=== PATIENT | male | born 1970 | race African-American/Black ===

== ENCOUNTER 2018-11-27 11:09 | Emergency (ER) | payer MEDICAID ==
[~2018-11-27] VITALS: Ht 182.9 cm; Wt 77.1 kg
[2018-11-27 11:09] VITALS: BP 148/76
--- NOTE | 2018-11-27 11:10 | NUR ---
ED Nurse Note: Patient biba c/o of upper back pain, patient states that a garage door fell on his back. rates his pain a 8/10 pain, states that the pain is slowly creeping up from the middle of his back to his upper back, denies any headaches or blurred vision. patient is alert and oriented x4, no lacerations in head
[2018-11-27] MEDS ORDERED: Acetaminophen 500mg (ES) tab ORAL ONE (13:00)
--- NOTE | 2018-11-27 14:15 | Emergency Room Report ---
History of Present Illness General Chief Complaint: Pain Present Illness HPI 48-year-old male presents to the emergency department complaining of localized 8 out of 10 in severity pain to the lower back primarily on the right side with some radiation up towards the upper back and his neck. Status post the garage door falling on top of his back. Patient reports that when it rains that brought her slipped often and this was the case today. Patient denies midline neck pain he denies hitting his head or having loss of consciousness.Denies numbness tingling or loss of sensation or gross motor movements of the extremities, incontinence of bowel or bladder. Denies CP, Palpitations, LOC, AMS , dizziness, Changes in Vision, weakness or a sudden severe headache. Bending forward exacerbates his pain. Allergies: Coded Allergies: No Known Allergies (Unverified , 11/27/18) Patient History Past Medical History: see triage record Past Surgical History: none Pertinent Family History: none Reviewed Nursing Documentation: PMH: Agreed; PSxH: Agreed Review of Systems All Other Systems: negative except mentioned in HPI Physical Exam Vital Signs Date Time Temp Pulse Resp B/P (MAP) Pulse Ox O2 Delivery O2 Flow Rate FiO2 11/27/18 11:04 98.4 80 18 148/76 98 Room Air Sp02 EP Interpretation: reviewed, normal General Appearance: no apparent distress, alert, GCS 15, non-toxic Head: normocephalic, atraumatic Eyes: bilateral eye normal inspection, bilateral eye PERRL ENT: hearing grossly normal, normal voice Neck: full range of motion Respiratory: lungs clear, normal breath sounds, speaking full sentences Cardiovascular #1: regular rate, rhythm Rectal: deferred Genitourinary: normal inspection Musculoskeletal: back normal, gait/station normal, normal range of motion, tender - TTp across the lumbar area, paraspinal musculature and mild midline ttp. FROm. Neurologic: alert, oriented x3, responsive, motor strength/tone normal, sensory intact, normal gait, speech normal, grossly normal Psychiatric: judgement/insight normal Skin: normal color, no rash, warm/dry, well hydrated, other - no bruises Medical Decision Making PA Attestation Dr. Ramirez is my supervising Physician whom patient management has been discussed with. Diagnostic Impression: Primary Impression: Muscle spasm Additional Impression: Contusion of back Qualified Codes: S20.221A - Contusion of right back wall of thorax, initial encounter ER Course 48-year-old male presents to the emergency department complaining of localized 8 out of 10 in severity pain to the lower back primarily on the right side with some radiation up towards the upper back and his neck. Status post the garage door falling on top of his back. Patient reports that when it rains that brought her slipped often and this was the case today. Patient denies midline neck pain he denies hitting his head or having loss of consciousness.Denies numbness tingling or loss of sensation or gross motor movements of the extremities, incontinence of bowel or bladder. Denies CP, Palpitations, LOC, AMS , dizziness, Changes in Vision, weakness or a sudden severe headache. Bending forward exacerbates his pain. Ddx considered but are not limited to Fracture, dislocation, contusion, epidural abscess, Sprain/Strain/Spasm Vital signs: are WNL, pt. is afebrile H&PE are most consistent with muscle spasm, ORDERS: -X-raY -L-Spine : Unremarkable , no acute fx's ED INTERVENTIONS: -Soma PO -Tylenol PO DISCHARGE: At this time pt. is stable for d/c to home. Will provide printed patient care instructions, and any necessary prescriptions. Care plan and follow up instructions have been discussed with the patient prior to discharge. Other X-Ray Diagnostic Results Other X-Ray Diagnostic Results : X-Ray ordered: L-Spine # of Views/Limited Vs Complete: 3 View Indication: Pain EP Interpretation: Yes PA Xray: Interpretation reviewed, by supervising MD Anthony Tripathi, and agrees with findings. Interpretation: no dislocation, no soft tissue swelling, no fractures Impression: No acute disease Electronically Signed by: Thais Cardoso PA-C Last Vital Signs Date Time Temp Pulse Resp B/P (MAP) Pulse Ox O2 Delivery O2 Flow Rate FiO2 11/27/18 11:09 98.4 82 18 148/76 98 Room Air Disposition: HOME, SELF-CARE Condition: Stable Scripts Acetaminophen* (TYLENOL EXTRA STRENGTH*) 500 Mg Tablet 500 MG ORAL Q6H, #20 TAB 0 Refills Prov: Thais Cardoso 11/27/18 Methocarbamol* (ROBAXIN-750*) 750 Mg Tablet 750 MG PO QID, #28 TAB 0 Refills Prov: Thais Cardoso 11/27/18 Referrals: NON PHYSICIAN (PCP) Departure Forms: Return to Work Return to Work Date: Dec 01, 2018 Work Restrictions: None Other Restrictions: May return Sooner if Symptoms have resolved. Return to Full Activity: Dec 01, 2018 Patient Instructions: Contusion, [id number] Additional Instructions: Take medications as directed. Follow up with a Primary Care Provider in 3-5 days, even if your symptoms have resolved. --Please review list of primary care clinics, if you do not already have a primary care provider Return sooner to ED if new symptoms occur, or current symptoms become worse. Do not drink alcohol, drive, or operate heavy machinery while taking Robaxin ( Muscle Relaxers) as this may cause drowsiness. - Please note that this Emergency Department Report was dictated using [employer] technology software, occasionally this can lead to erroneous entry secondary to interpretation by the dictation equipment. Thais Cardoso Nov 27, 2018 14:15
[2018-11-27] MEDS ORDERED: ROBAXIN-750750 MG PO (14:17)
[2018-11-27] MEDS ORDERED: TYLENOL EXTRA500 MG ORAL (14:17)
[2018-11-27 14:30] VITALS: BP 142/75
--- NOTE | 2018-11-27 14:30 | NUR ---
ED Nurse Note: Pt. AAOx4. left with steady and all belongings. Pt. education done regarding d/c papers and prescriptions. Pt. verbalized the uderstanding of the teaching. VSS. ID armband removed.
--- NOTE | 2018-11-27 14:38 | Diagnostic Imaging Report ---
Indication: Back pain Comparison: None Findings: 3 views of the lumbar spine were obtained. No acute fracture or malalignment is identified. Vertebral body heights and disk spaces are well maintained. Posterior elements are unremarkable. Impression: No acute findings.
== END 2018-11-27 14:30 | disposition home or self-care (01) ==
LOC: EDBD 11:09 → EMR 12:10
DX: M62.830 Muscle spasm of back (principal); S30.0XXA Contusion of lower back and pelvis, initial encounter; W20.8XXA Other cause of strike by thrown, projected or falling object, initial encounter; Y92.008 Other place in unspecified non-institutional (private) residence as the place of occurrence of the external cause
CPT/HCPCS: 72020; 99283